=== PATIENT | female | born 1970 | race African-American/Black ===

== ENCOUNTER 2021-12-23 18:17 | Emergency (ER) | payer OTHER ==
[~2021-12-23] VITALS: Ht 167.6 cm; Wt 82.0 kg
[2021-12-23] MEDS ORDERED: KETOROLAC 60MG/2ML VIAL IM ONE (19:00)
[2021-12-23] MEDS ORDERED: LORAZEPAM 0.5MG TABLET PO ONE (19:00)
[2021-12-23 19:32] VITALS: BP 136/86
[2021-12-23] MEDS ORDERED: DEXAMETHASONE 4MG TABLET PO STA (20:50)
[2021-12-23] MEDS ORDERED: IBUP-2029 MT (20:52)
[2021-12-23] MEDS ORDERED: CYCL10TA21 MT (20:52)
== END 2021-12-23 21:18 | disposition home or self-care (01) ==
LOC: ER 18:17
DX: M54.50 Low back pain, unspecified (principal); G89.29 Other chronic pain; M51.26 Other intervertebral disc displacement, lumbar region; V43.52XA Car driver injured in collision with other type car in traffic accident, initial encounter; Y93.89 Activity, other specified; Y92.488 Other paved roadways as the place of occurrence of the external cause
CPT/HCPCS: 96372; 99283; J1885; J8540